=== PATIENT | male | born 1995 | race Caucasian/White ===

== ENCOUNTER → 2020-05-08 15:53 | Outpatient (BNVA) | payer SELFPAY | PROVIDERS: Referring Provider Family Medicine; Visit Provider Specialist | DX: G89.29 Other chronic pain (principal); M25.561 Pain in right knee; M25.562 Pain in left knee | CPT/HCPCS: 73560; 73565 ==

== ENCOUNTER 2020-09-16 00:38 | Emergency (ER) | payer SELFPAY ==
[2020-09-16 00:43] VITALS: BP 110/82; PULSE 113; RESP 16; TEMP 36.5; O2SAT 99; BMI 19.6
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
[2020-09-16 02:58] VITALS: BP 108/57; PULSE 68; RESP 18; TEMP 37.1; O2SAT 97
[2020-09-16] MEDS: ibuprofen 800 mg tablet PO (03:06)
[2020-09-16] MEDS: cephALEXin 500 mg Capsule PO (03:06)
[2020-09-16 03:29] VITALS: BP 108/57; PULSE 68; RESP 18; O2SAT 97
== END 2020-09-16 02:57 | disposition home or self-care (01) ==
PROVIDERS: Emergency Provider Nurse Practitioner Family
DX: S01.511A Laceration without foreign body of lip, initial encounter (principal); S01.512A Laceration without foreign body of oral cavity, initial encounter; Z87.891 Personal history of nicotine dependence; V89.2XXA Person injured in unspecified motor-vehicle accident, traffic, initial encounter
CPT/HCPCS: 70450; 72125; 99283

== ENCOUNTER 2023-08-12 10:53 | Emergency (ER) | payer SELFPAY ==
[2023-08-12 11:02] VITALS: BP 131/82; PULSE 78; RESP 14; TEMP 36.8; O2SAT 98; BMI 23.0
[2023-08-12 11:04] VITALS: BP 131/82; PULSE 76; RESP 16; O2SAT 96
--- NOTE | 2023-08-12 11:11 | CT_ITS ---
WS: [id number] CT ORBITS TECHNIQUE: Contrast-enhanced CT of the orbits with coronal and sagittal reformatted images. CLINICAL INFORMATION: l eye swelling COMPARISON: CT head 09/16/2020 DLP: 369.[address] scans at [facility] use at least one of these dose optimization techniques: automated e xposure control; mA and/or kV adjustment per patient size (includes targeted exams where dose is matc hed to clinical indication); or iterative reconstruction. FINDINGS: Soft tissue edema with enhancement along the LEFT nasal bones and preseptal space. Induration and enh ancement extending into the LEFT lacrimal fossa and medial canthus suspicious for dacryocystitis. Ass ociated edema in the lower eyelid. Slightly enlarged and enhancing proximal nasolacrimal duct suspici ous for obstruction. Induration with inflammatory stranding and edema overlying the LEFT orbital soft tissues. This extend s into the supraorbital and infraorbital soft tissues. No evidence of postseptal or intraconal extens ion. Normal intraconal fat. Mild mucosal thickening in the paranasal sinuses. No evidence of subperiosteal abscess. Mastoid air c ells are well aerated. Normal posterior nasopharynx and parapharyngeal fat. CT/CT orbit BI w con [id number] IMPRESSION: 1. Findings compatible with LEFT preseptal cellulitis with suspected dacryocys titis. No evidence of drainable abscess or fluid collection. 2. Inflammatory changes with enhancement and soft tissue thickening involving the medial canthus extending into the nasolacrimal duct suspicious for dacryocy stitis. Associated edema in the lower eyelid. Recommend ophthalmology follow-up to assess for lacrimal duct obstruction 3. No evidence of intraconal or postseptal extension. 4. Mucosal thickening in the paranasal sinuses. No evidence of subperiosteal a bscess. 5. Small amount of fluid and edema extends along the LEFT nasolacrimal duct.
[2023-08-12] MEDS: iohexol 350 mg/mL 500 mL Btl (per mL) IV (11:30)
[2023-08-12 11:32] LABS: Basophils # 0.1 10^3/uL (0.0-0.1); Basophils % 1.1 %; Eosinophils # 0.4 10^3/uL (0.0-0.8); Hematocrit 47.7 % (37-53); Lymphocytes # 1.1 10^3/uL (0.8-4.8); Mean Corpuscular Hemoglobin 31.6 pg (27-33); Mean Corpuscular Volume 90.3 fl (82-101); Mean Platelet Volume 9.3 fL (7.4-10.4); Monocytes % 9.5 %; Neutrophils # 7.52 10^3/uL (1.8-7.7); Neutrophils % 74.1 %; Nucleated Red Blood Cells % 0 %; Platelet Count 238 10^3/cmm (157-399); Red Blood Count 5.28 10^6/uL (3.85-5.65); Red Cell Distribution Width 12.9 % (12.1-15.1); White Blood Count 10.15 10^3/uL (3.29-11.43)
--- NOTE | 2023-08-12 11:34 | ED_ITS ---
HPI - Eye Problem 2 General: Chief complaint: Eye Problems Stated complaint: left eye pain Time Seen by Provider: 08/12/23 11:09 Source: patient Limitations: no limitations History of Present Illness: 28-year-old male states been having left eye pain since yesterday's had swelling and redness to his eyelid along with eye sent here to rule out orbital cellulitis states he does have some pain with movement of his eye he denies any fever he denies any injury or foreign body that he knows of. Associated symptoms: Denies fever(s), headache(s), nausea, neck pain or vomiting Review of Systems 2 Const: Denies: fever(s), chills, body aches or change in appetite Eyes: Denies: blurry vision or eye discomfort ENMT: Denies: throat pain or dental pain Card: Denies: chest pain Resp: Denies: dyspnea GI: Denies: abdominal pain, nausea, vomiting or diarrhea : Denies: dysuria Musc: Denies: neck pain or back pain Skin/Breast: Denies: rash Neuro: Denies: headache(s) Psych: Denies: depression Kiran/Lymph: Denies: easy bruising All/Imm: Denies: urticaria PFSH ED 2 PFSH: Family History Mother No problems noted. Father No problems noted. Social History Smoking and tobacco/nicotine status: former use of tobacco/nicotine Quit status (tobacco/nicotine): has quit using Alcohol intake: current Alcohol intake frequency: few times a week Alcohol type: beer Physical Exam 2 Const: COMMON NORMALS: no acute distress, patient oriented x3 and healthy appearing HENMT: COMMON NORMALS: normocephalic and atraumatic HEAD & SCALP: n ormocephalic and atraumatic Eye: COMMON NORMALS: Equal, round and reactive pupils present PUPIL: Yes Equal, round and reactive pupils present OTHER: Erythema swelling to left lid and conjunctivitis Neck/C-Spine: COMMON NORMALS: full ROM and supple Chest: COMMONS NORMALS: normal inspection of the chest and normal palpation of entire chest wall Resp: COMMON NORMALS: normal respiratory effort Cardio: COMMON NORMALS: regular rate and No murmurs present (Cardio) RATE: regular rate Extremity: COMMON NORMALS: normal to inspection and full ROM Neuro: COMMON NORMALS: patient oriented x3, moves all extremities and no focal motor deficits Psych: COMMON NORMALS: mental status grossly normal, Normal thought process present and cooperative THOUGHT PROCESS: Normal thought process present Skin: COMMON NORMALS: no rashes or lesions noted and no wounds GENERAL SKIN EXAM: no rashes or lesions noted Course 2 Vital Signs: Vital signs: Vital Signs Temperature 98.3 F 08/12/23 11:02 Pulse Rate 76 08/12/23 11:04 Respiratory Rate 16 08/12/23 11:04 Blood Pressure 131/82 08/12/23 11:04 Pulse Oximetry 96 08/12/23 11:04 Oxygen Delivery Me thod Room Air 08/12/23 11:04 MDM - Eye Problem Medical Decision Making Patient presents here with preseptal cellulitis he also has a dacryocystitis we will place him on oral and eyedrop antibiotics he is to do warm compresses as well I did speak to ophthalmology he is to follow-up with Dr. Orellana return if worsening he understands agrees to plan Medical Records I reviewed the patient's medical records. Lab Data I reviewed the patient's lab results. 08/12/23 11:24 08/12/23 11:[address] 08/12/23 11:11 IMPRESSION: 1. Findings compatible with LEFT preseptal cellulitis with suspected dacryocystitis. No evidence of drainable abscess or fluid collection. 2. Inflammatory changes with enhancement and soft tissue thickening involving the medial canthus extending into the nasolacrimal duct suspicious for dacryocystitis. Associated edema in the lower eyelid. Recommend ophthalmology follow-up to assess for lacrimal duct obstruction 3. No evidence of intraconal or postseptal extension. 4. Mucosal thickening in the paranasal sinuses. No evidence of subperiosteal abscess. 5. Small amount of fluid and edema extends along the LEFT nasolacrimal duct. Laboratory Results WBC 10.15 10^3/uL (3.29-11.43) 08/12/23 11:24 RBC 5.28 10^6/uL (3.85-5.65) 08/12/23 11:24 Hgb 16.70 g/dL (11.27-16.99) 08/12/23 11:24 Hct 47.7 % (37-53) 08/12/23 11:24 MCV 90.3 fl (82-101) 08/12/23 11:24 MCH 31.6 pg (27-33) 08/12/23 11:24 MCHC 35.0 g/dL (30-55) 08/12/23 11:24 RDW 12.9 % (12.1-15.1) 08/12/23 11:24 Plt Count 238 10^3/cmm (157-399) 08/12/23 11:24 MPV 9.3 fL (7.4-10.4) 08/12/23 11:24 Neut % (Auto) 74.1 % 08/12/23 11:24 Lymph % (Auto) 11.0 % 08/12/23 11:24 Lanier % (Auto) 9.5 % 08/12/23 11:24 Eos % (Auto) 4.0 % 08/12/23 11:24 Baso % (Auto) 1.1 % 08/12/23 11:24 Neut # (Auto) 7.52 10^3/uL (1.8-7.7) 08/12/23 11:24 Lymph # (Auto) 1.1 10^3/uL (0.8-4.8) 08/12/23 11:24 Lanier # (Auto) 1.0 10^3/uL (0.2-0.9) H 08/12/23 11:24 Eos # (Auto) 0.4 10^3/uL (0.0-0.8) 08/12/23 11:24 Baso # (Auto) 0.1 10^3/uL (0.0-0.1) 08/12/23 11:24 Nucleated RBC % (auto) 0 % 08/12/23 11:24 Nucleated RBCs # 0.0 /100WBC 08/12/23 11:24 Sodium 140 mmol/L (136-145) 08/12/23 11:24 Potassium 4.2 mmol/L (3.5-5.1) 08/12/23 11:24 Chloride 102 mmol/L (98-107) 08/12/23 11:24 Carbon Dioxide 27 mmol/L (22-29) 08/12/23 11:24 Anion Gap 15.2 (5-19) 08/12/23 11:24 BUN 11 mg/dL (6-20) 08/12/23 11:24 Creatinine 1.1 mg/dL (0.7-1.2) 08/12/23 11:24 GFR Calculation 80.3 mL/min (90-130) L 08/12/23 11:24 Glucose 93 mg/dL (65-115) 08/12/23 11:24 Calculated Osmolality 289 mOsm/kg (285-295) 08/12/23 11:24 Calcium 9.6 mg/dL (8.5-10.5) 08/12/23 11:24 Total Bilirubin 1.0 mg/dL (0.15-1.2) 08/12/23 11:24 AST 24 U/L (0-40) 08/12/23 11:24 ALT 23 U/L (0-41) 08/12/23 11:24 Alkaline Phosphatase 96 U/L (40-130) 08/12/23 11:24 C-Reactive Protein 20.7 mg/L (0.0-4.9) H 08/12/23 11:24 Total Protein 7.6 g/dL (6.6-8.7) 08/12/23 11:24 Albumin 4.4 g/dL (3.5-5.2) 08/12/23 11:24 Globulin 3.2 g/dL (1.3-4.6) 08/12/23 11:24 All radiology interpretation(s) finalized by discharge Discharge Plan Discharge Patient Disposition: Home Clinical Impression: Periorbital cellulitis Qualifiers: Laterality: left Qualified Code(s): L03.213 - Periorbital cellulitis Dacrocystitis Qualifiers: Laterality: left Qualified Code(s): H04.302 - Unspecified dacryocystitis of left lacrimal passage Condition: Stable Prescriptions: New Augmentin 500-125 mg tablet 1 tab PO BID Qty: 14 0RF Vigamox 0.5 % drops 1 drp ophthalmic (eye) TID 7 Days Qty: 3 0RF Discharge Orders: Discharge ED (Routine); Ordered 08/12/23 Ordered By: Grant Simeon Referrals: Joel Orellana MD [Physician] - 1-3 days Discharge Diet: Advance as tolerated Discharge Activity: Resume usual activity Patient Instructions: Periorbital Cellulitis (ED), Dacryocystitis Coding Level of Care Code ED 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
[2023-08-12 12:01] LABS: Alanine Aminotransferase 23 U/L (0-41); Albumin Level 4.4 g/dL (3.5-5.2); Alkaline Phosphatase 96 U/L (40-130); Anion Gap 15.2 (5-19); Aspartate Amino Transferase 24 U/L (0-40); Blood Urea Nitrogen 11 mg/dL (6-20); C Reactive Protein 20.7 mg/L (0.0-4.9); Calcium 9.6 mg/dL (8.5-10.5); Carbon Dioxide 27 mmol/L (22-29); Chloride 102 mmol/L (98-107); Creatinine Clr Calc Pharmacy 110.4381; Globulin 3.2 g/dL (1.3-4.6); Glomerular Filtration Rate 80.3 mL/min (90-130); Glucose 93 mg/dL (65-115); Osmolality Calculated 289 mOsm/kg (285-295); Potassium 4.2 mmol/L (3.5-5.1); Sodium 140 mmol/L (136-145); Total Protein 7.6 g/dL (6.6-8.7)
[2023-08-12] MEDS: fluorescein 1 mg Strip EYE-LEFT (12:06)
[2023-08-12] MEDS: tetracaine 0.5% Op Soln 4 mL Btl 1 DROP EYE-LEFT (12:06)
[2023-08-12] MEDS: ampicillin-sulbactam 3 GM in sodium chloride 0.9% (plus) 50 ML IV (12:13)
[2023-08-12 13:28] VITALS: BP 126/79; PULSE 59; RESP 14; TEMP 36.8; O2SAT 100
== END 2023-08-12 13:12 | disposition home or self-care (01) ==
PROVIDERS: Emergency Provider Emergency Medicine
DX: L03.213 Periorbital cellulitis (principal); H04.302 Unspecified dacryocystitis of left lacrimal passage; Z87.891 Personal history of nicotine dependence
CPT/HCPCS: 36415; 70481; 80053; 85025; 86140; 96365; 99285; J0295; Q9967